=== PATIENT | male | born 1945 | race Caucasian/White ===

== ENCOUNTER 2019-09-25 19:33 | Emergency (ER) | payer MEDICARE, OTHER ==
[~2019-09-25] VITALS: Ht 175.3 cm; Wt 80.3 kg
[2019-09-25] MEDS ORDERED: METOPROLOL SUC100 MG PO (20:03)
[2019-09-25] MEDS ORDERED: PRAVACHOL40 MG PO (20:04)
[2019-09-25] MEDS ORDERED: HYDROCHLOROTHIA25 MG PO (20:04)
[2019-09-25] MEDS ORDERED: OMEPRAZOLE20 M1 PO (20:04)
[2019-09-25] MEDS ORDERED: METFORMIN HCL1000 MG PO (20:05)
[2019-09-25] MEDS ORDERED: FLOMAX0.4 MG PO (20:05)
[2019-09-25] MEDS ORDERED: FINASTERIDE5 MG PO (20:05)
--- NOTE | 2019-09-27 12:32 | EKG ---
[facility] [address] [place], [place] [address] Signed Sinus rhythm with occasional premature ventricular complexes and premature atrial complexes Nonspecific ST abnormality Prolonged QT Abnormal ECG No previous ECGs available Confirmed by JAGDISH RAMIREZ DO ([id number]) on 09/27/2019 12:32:28 PM Electronically Signed By: JAGDISH RAMIREZ DO 09/27/19 1232 PATIENT NAME: MARSHALL GONZALES Electrocardiogram DATE OF : 43 PHYSICIAN: JAGDISH RAMIREZ DO REPORT #: [id number] REPORT IS CONFIDENTIAL AND NOT TO BE RELEASED WITHOUT AUTHORIZATION
== END 2019-09-25 22:07 | disposition home or self-care (01) ==
LOC: ED 19:33
DX: I95.9 Hypotension, unspecified (principal); E11.9 Type 2 diabetes mellitus without complications; Z79.899 Other long term (current) drug therapy
CPT/HCPCS: 71045; 80053; 83735; 84484; 85025; 85379; 93005; 93010; 99285-25